=== PATIENT | male | born 1955 | race Caucasian/White ===

== ENCOUNTER 2021-02-03 18:39 | Emergency (ER) | payer MEDICARE, OTHER ==
[~2021-02-03] VITALS: Ht 180.3 cm; Wt 117.9 kg
--- NOTE | 2021-02-03 19:00 | NUR ---
Patient presents with C/O left testicle pain. Patient states, "About 10 days ago I had some minor pain in left testicle, but it pretty much went away until three days ago and then it started hurting again. Today the pain got so intense, I got weak and my whole body started hurting. It starts in the testicle and radiates up the groin like something is pulling and tight. I don't have any issues urinating, but I can't do anything without severe pain occurring." Patient is alert, no acute distress. While this RN doing assessment, patient became pale, started dry heaving and became diaphoretic. Patient rates pain 10/10 intermittent sharp, stabbing, pulling pain. Patient tried Tylenol at home, with no improvement in symptoms. No other complaints at this time.
[2021-02-03 19:16] VITALS: BP 138/77
[2021-02-03] MEDS ORDERED: ZOFRAN IV STA (19:48)
[2021-02-03] MEDS ORDERED: TORADOL IV STA (19:48)
[2021-02-03] MEDS ORDERED: NS 1000ML 1,000 ML ONE (19:58)
[2021-02-03] MEDS ORDERED: ZOFRAN ONE (19:58)
[2021-02-03] MEDS ORDERED: TORADOL ONE (19:58)
[2021-02-03] MEDS ORDERED: NS 1000ML 1,000 ML IV ONE (20:00)
[2021-02-03 20:09] LABS: BASOPHIL % 0.4 % (0.0-0.2); EOSINOPHIL # 0.2 10^3/uL (0.0-0.2); EOSINOPHIL % 2.1 % (0.0-5.0); LYMPHOCYTES # 1.66 10^3/uL1 (1.0-4.8); LYMPHOCYTES % 17.6 % (24.0-44.0); MEAN CORP HGB 29.7 pg (26-34); MONOCYTES # 0.6 10^3/uL (0.3-0.8); NEUTROPHIL # 6.9 10^3/uL (1.8-7.7); NEUTROPHILS % 73.6 % (41.0-85.0); PLATELET COUNT 167 10^3/uL (150-400); RED CELL DISTRIBUTION WIDTH 14.7 % (11.5-14.5)
[2021-02-03 20:30] VITALS: BP 141/73
--- NOTE | 2021-02-03 20:41 | ER.PDOC ---
General Chief Complaint: Male Stated Complaint: GROIN PAIN Time seen by MD: 19:20 Source: patient Exam Limitations: no limitations History of Present Illness Initial Comments 65-year-old male presenting with left testicular pain. Patient is a visitor and to [place] and is [facility]. Patient states that he had bent over to reach for something and felt in exquisite pain radiating in his groin into his left testicle that made him sick to his stomach, sweaty and lost his breath. Patient states that he thinks this may have happened secondary to him accidentally hitting himself in the left testicle with the elastic band of his pants about a week ago. Otherwise he said at that time he had mild pain and mild swelling but that improved. Today he was fine until he bent over and experienced the pain. Patient denies any fever, no vomiting but nauseated, no diarrhea, normal urinary output with no hematuria no frequency no urgency. Patient has never had this before. No history of STDs. Timing/Duration: just prior to arrival Severity/Quality: severe, throbbing Location: groin Associated Symptoms: Testicle pain (L) Allergies: Coded Allergies: No Known Allergies (Unverified , 02/03/21) Past Medical History Medical History: cardiac problems, heart attack, hypertension Surgical History: stent Social History Alcohol Use: none Drug Use: none Review of Systems Constitutional: diaphoresis Gastrointestinal: denies no symptoms reported, denies see HPI; abdominal pain; denies constipation, denies diarrhea, denies nausea, denies vomiting, denies other Genitourinary: denies no symptoms reported, denies see HPI, denies burning, denies discharge, denies dysuria, denies frequency, denies flank pain, denies hematuria, denies incontinence, denies pain, denies urgency, denies other Musculoskeletal: denies no symptoms reported, denies see HPI, denies back pain, denies gout, denies joint pain, denies joint swelling, denies muscle pain, denies muscle stiffness, denies neck pain, denies other Skin: denies no symptoms reported, denies see HPI, denies change in color, denies change in hair/nails, denies dryness, denies lesions, denies lumps, denies rash, denies other Physical Exam General Appearance: No Apparent Distress, WD/WN EENT: eyes nml inspection, nml ENT inspection, pharynx nml Neck: nml inspection, non-tender Cardiovascular/Respiratory: Regular Rate, Rhythm, No M/R/G, Normal Peripheral Pulses, No JVD, Normal Breath Sounds, No Respiratory Distress Abdomen: Normal Bowel Sounds, Non Tender, Soft, No Organomegaly, No Pulsatile Mass Rectal: Normal Exam Male Genitals: Normal Genitalia (Patient is uncircumcised, normal cremaster reflex, no scrotal edema or discoloration. No palpable or reproducible pain on exertion. No penile discharge), Normal Prostate, No Hernia Back: nml inspection Extremities: Normal Range of Motion, Non-Tender, Normal Inspection, No Pedal Edema Neurologic/Psychiatric: Alert, Normal Mood/Affect, Oriented x 3 Skin: Warm/Dry, Pallor Lymphatic: No Adenopathy Results/Orders Results/Orders Orders - EJESIEME,ERMA C DO Cbc With Auto Diff (02/03/21 19:37) Comprehensive Metabolic Panel (02/03/21 19:37) Urinalysis (02/03/21 19:37) Saline Lock (02/03/21 19:37) Ct Abd/Pelvis Wo Iv Contrast (02/03/21 19:37) Us Scrotal (02/03/21 19:37) Ketorolac Tromethamine (Toradol) (02/03/21 19:48) Ondansetron Hcl/Pf (Zofran) (02/03/21 19:48) 0.9 % Sodium Chloride (Ns 1000ml) (02/03/21 20:00) 0.9 % Sodium Chloride (Ns 1000ml) (02/03/21 19:58) Ondansetron Hcl/Pf (Zofran) (02/03/21 19:58) Ketorolac Tromethamine (Toradol) (02/03/21 19:58) Urine Culture (02/04/21 22:45) Vital Signs Date Time Temp Pulse Resp B/P (MAP) Pulse Ox O2 Delivery O2 Flow Rate FiO2 02/03/21 23:53 98.7 59 18 129/80 (96) 99 Room Air 02/03/21 21:30 98.7 69 18 146/82 (103) 100 Room Air 02/03/21 20:30 98.7 66 18 141/73 (95) 99 Room Air 02/03/21 19:16 98.7 63 18 138/77 (97) 99 Room Air 02/03/21 19:16 98.7 63 18 99 02/03/21 19:16 98.7 63 18 Administered Medications Medications (Trade) Dose Ordered Sig/Kiana Route PRN Reason Start Time Stop Time Status Last Admin Dose Admin Ketorolac Tromethamine (Toradol) 30 mg OT STAT IV 02/03/21 19:48 02/03/21 19:51 DC 02/03/21 20:00 30 MG Ondansetron HCl (Zofran) 4 mg OT STAT IV 02/03/21 19:48 02/03/21 19:51 DC 02/03/21 20:03 4 MG Sodium Chloride 1,000 ml @ 1 l/hr Q1H ONCE IV 02/03/21 20:00 02/03/21 20:59 DC 02/03/21 20:03 1 L/HR Laboratory Tests Test 02/03/21 20:02 02/03/21 22:45 White Blood Count 9.4 10^3/uL (4.5-11.0) Red Blood Count 5.11 10^6/uL (4.50-5.90) Hemoglobin 15.2 g/dL (13.9-16.3) Hematocrit 47.7 % (37.0-53.0) Mean Corpuscular Volume 93.3 fL (78-100) Mean Corpuscular Hemoglobin 29.7 pg (26-34) Mean Corpuscular Hemoglobin Concent 31.9 g/dL (33-36.5) L Red Cell Distribution Width 14.7 % (11.5-14.5) H Platelet Count 167 10^3/uL (150-400) Mean Platelet Volume 10.3 fL (7.8-11.0) Neutrophils (%) (Auto) 73.6 % (41.0-85.0) Lymphocytes (%) (Auto) 17.6 % (24.0-44.0) L Monocytes (%) (Auto) 6.0 % (5.0-12.0) Neutrophils # (Auto) 6.9 10^3/uL (1.8-7.7) Lymphocytes # (Auto) 1.66 10^3/uL1 (1.0-4.8) Monocytes # (Auto) 0.6 10^3/uL (0.3-0.8) Absolute Immature Granulocyte (auto 0.03 10^3 u/L (0-2) Absolute Eosinophils (auto) 0.2 10^3/uL (0.0-0.2) Immature Granulocytes % 0.30 % (0.00-0.50) Eosinophils % 2.1 % (0.0-5.0) Basophils % 0.4 % (0.0-0.2) H Basophils # 0.0 10^3/uL (0.0-0.1) Blood Morphology Comment NORMAL MORPHOLOGY Urine Collection Type RANDOM Urine Color YELLOW Urine Appearance CLEAR Urine Bilirubin NEGATIVE (NEGATIVE) Urine Ketones TRACE (NEGATIVE) H Urine Specific [place] 1.025 (1.005-1.030) Urine pH 5.5 (4.5-8.0) Urine Protein TRACE (NEGATIVE) Urine Urobilinogen 0.2 E.U./dL (0.2) Urine Nitrate NEGATIVE (NEGATIVE) Urine Leukocyte Esterase NEGATIVE (NEGATIVE) Urine Glucose (Auto)(UA) NEGATIVE (NEGATIVE) Urine Blood NEGATIVE (NEGATIVE) Urine RBC NONE SEEN RBC/HPF (NONE Urine WBC 0-2 WBC/HPF (0-2) Urine Bacteria FEW (NONE SEEN) H Progress Progress 65-year-old male presenting with groin pain. Ultrasound unremarkable for any ischemic changes or inflammatory changes such as orchitis. For hydrocele &. UA with few bacteria so we will treat for normal creatinine no CT unremarkable for any acute findings such as times. Will discharge home with symptomatic relief. ER DEPART Departure Time of Disposition: 00:15 Disposition: 01 HOME / SELF CARE / HOMELESS Impression: Primary Impression: Varicocele Additional Impressions: Hydrocele in adult Cholelithiasis Condition: Stable Patient Instructions: Cholelithiasis, [id number], Hydrocele, Referrals: PCP,UNKNOWN (PCP) PRIMARY CARE PROVIDER JULIO CLINE MD Additional Instructions: Follow-up with urology for reexamination of your hydrocele and varicoceles. You do have gallstones a please follow-up with general surgery. Return to ED for any new or worsening symptoms Duration or Time Spent with Pa: 60 min Return to Work/School Can a patient return to work?: Yes Problem Qualifiers ERMA CHISHOLM DO Feb 03, 2021 20:41
--- NOTE | 2021-02-03 21:21 | DIREP ---
PROCEDURE:US TESTICULAR COMPARISON:None. INDICATIONS:LT INJURY scrotal pain and groin pain X10D TECHNIQUE:The scrotum was evaluated with lincoln scale, spectral analysis, and color duplex doppler sonography. FINDINGS: RIGHT TESTICLE: Measures 4.9 x 2.2 x 3.2 cm. No mass or microcalcifications. LEFT TESTICLE: Measures 4.7 x 2.2 x 2.9 cm. No mass or microcalcifications. EPIDIDYMIS:The right epididymal head measures 0.9 cm in length.. The left epididymal head measures 0.9 cm in length and contains a 0.6 x 0.4 by 0.5 cm cyst. OTHER:Small hydrocele and varicocele on the right and moderate sized varicocele on the left. DOPPLER FLOW: Symmetric waveforms with sustained diastolic flow. CONCLUSION:Bilateral varicocele, left greater than right with small hydrocele on the right. Dictated by: Efren Bush M.D. on 02/03/2021 at 09:16 PM
--- NOTE | 2021-02-03 21:24 | DIREP ---
PROCEDURE:CT ABD/PELVIS W/O TECHNIQUE:Axial cuts were obtained through the abdomen and pelvis without IV contrast. The images were viewed at lung and soft tissue settings. Sagittal and coronal reconstructions are provided. COMPARISON:None. INDICATIONS:groin pain FINDINGS: LOWER CHEST:The lung bases are clear. LIVER:Normal. BILIARY:Small gallstone in the gallbladder series 2, image 31. PANCREAS:Normal. SPLEEN:Normal. URINARY TRACT:Normal. ADRENALS:Normal. AORTA/VASCULAR:Mild arterial calcifications. Calcified phleboliths in the deep pelvis. RETROPERITONEUM:Normal. BOWEL/MESENTERY:Normal. Normal appendix. ABDOMINAL WALL:Normal. PELVIS:Surgical clips in the scrotum. BONES:Disc narrowing vacuum changes L3-4 and L5-S1. Osteophytes in the thoracic and lumbar spine. Lower level lumbar facet arthrosis. OTHER:Normal. CONCLUSION: 1. Small gallstone the gallbladder. 2. Surgical clips in the scrotum. 3. Mild atherosclerosis. 4. Degenerative changes in the lumbar spine. Dictated by: Efren Bush M.D. on 02/03/2021 at 09:21 PM
[2021-02-03 21:30] VITALS: BP 146/82
[2021-02-03 23:53] VITALS: BP 129/80
[2021-02-03 23:56] LABS: BILIRUBIN,URINE NEGATIVE (NEGATIVE); UROBILINOGEN,URINE 0.2 E.U./dL (0.2)
== END 2021-02-04 00:30 | disposition home or self-care (01) ==
LOC: ER 18:39
DX: I86.1 Scrotal varices (principal); N43.3 Hydrocele, unspecified; K80.20 Calculus of gallbladder without cholecystitis without obstruction; N20.0 Calculus of kidney; I11.9 Hypertensive heart disease without heart failure; Z79.899 Other long term (current) drug therapy
CPT/HCPCS: 36415; 74176; 76870; 81001; 85025; 87086; 96361; 96374; 96375; 99285; J1885; J2405; J7030